=== PATIENT | male | born 1935 | race Caucasian/White ===

== ENCOUNTER 2019-12-10 03:49 | Observation (INO) | payer OTHER, MEDICARE, BC ==
[~2019-12-10] VITALS: Ht 175.3 cm; Wt 98.5 kg
[~2019-12-10 03:49] MED LIST: ACET325; ACET325 PO; ACYC5TO15G TOP; ALUMAG30SU PO; ASCO500 PO; ASPI325 PO; ASPI81EC PO; BISA10S PR; CALCIUM 600 +1 EA11; CEPH500 PO; CLOP75 PO; DOC250 PO; Fleet Enema132 ML PR; HCTZ/LISINOPRIL PO; LEVO750 PO; LEVSOD75 PO; LISHYD2025 PO; LISI5 PO; METO50 PO; Mag-Al Liquid30 ML PO; NYST100P TOP; OMEP20ER PO; SENN187 PO; SIMV40 PO; TERA5 PO; VITAMIN D31000 UNI1 PO
[2019-12-10 04:19] LABS: BASOPHILS ABSOLUTE AUTO 0.05 K/mm3 (0.00-0.23); BASOPHILS PERCENT AUTO 0 % (0-2); EOSINOPHILS ABSOLUTE AUTO 0.02 K/mm3 (0.00-0.68); EOSINOPHILS PERCENT AUTO 0 % (0-6); Hematocrit 45.8 % (37.0-53.0); Hemoglobin 15.4 g/dL (13.5-17.5); IMMATURE GRAN ABSOLUTE AUTO 0.07 K/mm3 (0.00-0.10); IMMATURE GRAN PERCENT AUTO 0 % (0-1); LYMPHOCYTES ABSOLUTE AUTO 1.39 K/mm3 (0.84-5.20); LYMPHOCYTES PERCENT AUTO 7 % (21-46); MONOCYTES PERCENT AUTO 5 % (4-13); Mean Corpuscular HGB 30.2 pg (26.0-34.0); Mean Corpuscular HGB Conc 33.6 g/dL (31.5-36.5); Mean Corpuscular Volume 90 fL (80-100); Mean Platelet Volume 10.7 fL (9.1-12.4); NEUTROPHILS ABSOLUTE AUTO 16.65 K/mm3 (1.96-9.15); NEUTROPHILS PERCENT AUTO 87 % (41-73); Platelet Count 211 K/mm3 (150-400); RDW Coefficient Variation 13.2 % (11.7-14.2); RDW Standard Deviation 43.6 fL (35.1-46.3); White Blood Cell Count 19.08 K/mm3 (4.00-11.30)
[2019-12-10 04:41] LABS: Albumin, Blood 3.4 g/dL (3.4-5.0); Albumin/Globulin Ratio 0.9 (0.8-1.8); Bilirubin, Total 0.5 mg/dL (0.1-1.0); Calcium, Blood 8.7 mg/dL (8.5-10.1); Creatinine, Blood 1.36 mg/dL (0.60-1.20); Globulin, Blood 3.7 g/dL (2.2-4.0); Potassium, Blood 3.6 mmol/L (3.5-5.5); Total Protein, Blood 7.1 g/dL (6.4-8.2)
[2019-12-10 05:38] LABS: Source, Urine Catheter
[2019-12-10 05:55] LABS: Bilirubin, Urine Neg (Neg); Blood, Urine 5+ (Neg); Glucose Qualitative, Urine Neg (Neg); Ketones, Urine Neg (Neg); Leukocyte Esterase, Urine 3+ (Neg); Nitrite, Urine Pos (Neg); Protein, Urine 3+ (Neg); Urobilinogen, Urine NORM (Normal)
[2019-12-10 06:08] LABS: Appearance, Urine Cloudy (Clear); Color, Urine Yellow (P-Yellow); Red Blood Cells, Urine TNTC /hpf (0-2); White Blood Cells, Urine TNTC /hpf (0-5)
[2019-12-10 06:09] LABS: Bacteria Many /hpf; Squamous Epithelial Cells Not Seen /hpf (Few)
--- NOTE | 2019-12-10 11:45 | NUR ---
PT JERKED RIGHT HAND UPWARD WHILE GETTING ONTO THE COMODE. HIS HAND HIT THE UNDERSIDE OF THE TOWEL RACK, RESULTING IN A SKIN TEAR ON THE BACK OF THE HAND APPROXIMATELY 2CM X 2CM. 2X2 GAUZE APPLIED WITH COBAN.
[2019-12-10] MEDS ORDERED: CEPH500 PO (14:27)
[2019-12-10] MEDS ORDERED: TAMS.4ER PO (14:27)
--- NOTE | 2019-12-10 16:19 | NUR ---
PT DISCHARGED HOME WITH HOME HEALTH. PT DISCHARGED WITH [facility] THAT HE ARRIVED WITH THIS AM. PT DENIES PAIN OR DISCOMFORT IN ABDOMEN AFTER [facility] ADJUSTMENT IN THE ER. PT TRANSPORTED HOME WITH HIS SPOUSE. PT TO VEHICLE IN WHEELCHAIR. PT 2 PERSON TRANSFER FROM WHEELCHAIR TO VEHICLE. PT'S SPOUSE STATED THAT SHE WAS GOING TO CALL [facility] TO HELP TRANSFER PT TO WHEELCHAIR AT HOME THEN INTO THE HOUSE. IV REMOVED PRIOR TO DISCHARGE. PRESCRIPT[facility]ED TO [facility]. DISCHARGE EDUCATION PROVIDED TO PT AND SPOUSE, NO FURTHER QUESTIONS AT THIS TIME.
== END 2019-12-10 14:55 | disposition home or self-care (01) ==
LOC: ER 03:49 → ERHOLD 03:50 → MEDS 03:50 → ENPENDDIS 12:00 → MEDS 14:55
PROVIDERS: Emergency Medicine; ADMIT Family Medicine
DX: T83.011A Breakdown (mechanical) of indwelling urethral catheter, initial encounter (principal); T83.511A Infection and inflammatory reaction due to indwelling urethral catheter, initial encounter; Y83.1 Surgical operation with implant of artificial internal device as the cause of abnormal reaction of the patient, or of later complication, without mention of misadventure at the time of the procedure; N40.1 Benign prostatic hyperplasia with lower urinary tract symptoms; N13.8 Other obstructive and reflux uropathy; E03.9 Hypothyroidism, unspecified; I12.9 Hypertensive chronic kidney disease with stage 1 through stage 4 chronic kidney disease, or unspecified chronic kidney disease; N18.3 Chronic kidney disease, stage 3 (moderate); Z86.73 Personal history of transient ischemic attack (TIA), and cerebral infarction without residual deficits; Z79.899 Other long term (current) drug therapy; Z88.2 Allergy status to sulfonamides; Z79.82 Long term (current) use of aspirin; Z87.891 Personal history of nicotine dependence; Z66 Do not resuscitate
CPT/HCPCS: 74177; 80053; 81001; 83690; 85025; 87086; 96361; 96365-59; 96366; 99285-25; G0378; J0696; J7030; J7050; Q9967

== ENCOUNTER 2022-09-01 11:44 | Emergency (ER) | payer OTHER ==
[~2022-09-01] VITALS: Ht 180.3 cm; Wt 113.4 kg
[~2022-09-01 11:44] MED LIST changes: +TAMS.4ER PO
[2022-09-01 12:20] LABS: BASOPHILS ABSOLUTE AUTO 0.05 K/mm3 (0.00-0.23); BASOPHILS PERCENT AUTO 0 % (0-2); EOSINOPHILS ABSOLUTE AUTO 0.06 K/mm3 (0.00-0.68); EOSINOPHILS PERCENT AUTO 1 % (0-6); Hematocrit 45.5 % (37.0-53.0); Hemoglobin 14.8 g/dL (13.5-17.5); IMMATURE GRAN ABSOLUTE AUTO 0.05 K/mm3 (0.00-0.10); IMMATURE GRAN PERCENT AUTO 0 % (0-1); LYMPHOCYTES ABSOLUTE AUTO 1.76 K/mm3 (0.84-5.20); LYMPHOCYTES PERCENT AUTO 15 % (21-46); MONOCYTES ABSOLUTE AUTO 0.66 K/mm3 (0.16-1.47); MONOCYTES PERCENT AUTO 6 % (4-13); Mean Corpuscular HGB 28.7 pg (26.0-34.0); Mean Corpuscular HGB Conc 32.5 g/dL (31.5-36.5); Mean Corpuscular Volume 88 fL (80-100); Mean Platelet Volume 10.5 fL (9.1-12.4); NEUTROPHILS ABSOLUTE AUTO 9.02 K/mm3 (1.96-9.15); NEUTROPHILS PERCENT AUTO 78 % (41-73); Platelet Count 258 K/mm3 (150-400); RDW Coefficient Variation 14.9 % (11.7-14.2); RDW Standard Deviation 48.1 fL (35.1-46.3); Red Blood Cell Count 5.16 M/mm3 (4.30-5.90)
[2022-09-01 12:47] LABS: Albumin, Blood 3.7 g/dL (3.4-5.0); Albumin/Globulin Ratio 0.9 (0.8-1.8); Bilirubin, Total 0.6 mg/dL (0.1-1.0); Bun/Creatinine Ratio 19.4 (12.0-20.0); Creatinine, Blood 1.6 mg/dL (0.60-1.20); Globulin, Blood 3.9 g/dL (2.2-4.0); Total Protein, Blood 7.6 g/dL (6.4-8.2)
[2022-09-01 13:06] LABS: Influenza A, PCR NEGATIVE (NEGATIVE); Influenza B, PCR NEGATIVE (NEGATIVE); Resp Syncytial Virus, PCR NEGATIVE (NEGATIVE)
[2022-09-01 13:09] LABS: SARS-Cov-2 (COVID-19) PCR, MMC POSITIVE (NEGATIVE)
[2022-09-01 13:13] LABS: Source, Urine Foley catheter
[2022-09-01 13:17] LABS: Appearance, Urine Hazy (Clear); Bilirubin, Urine Neg (Neg); Blood, Urine 3+ (Neg); Color, Urine Yellow (P-Yellow); Glucose Qualitative, Urine Neg (Neg); Ketones, Urine Neg (Neg); Leukocyte Esterase, Urine 3+ (Neg); Nitrite, Urine Neg (Neg); Protein, Urine 3+ (Neg); Urobilinogen, Urine NORM (Normal)
[2022-09-01 13:28] LABS: Magnesium, Blood 1.6 mg/dL (1.6-2.4); Thyroid Stimulating Hormone 3.5 uIU/mL (0.360-4.800)
[2022-09-01 13:34] LABS: White Blood Cells, Urine TNTC /hpf (0-5)
[2022-09-01 13:35] LABS: Bacteria Many /hpf; Squamous Epithelial Cells Not Seen /hpf (Few); Transitional Epithelial Cells Rare /hpf (0-Rare)
[2022-09-01] MEDS ORDERED: CEFD300 PO (14:58)
== END 2022-09-01 16:20 | disposition home or self-care (01) ==
LOC: ER 11:44
PROVIDERS: Emergency Medicine
DX: U07.1 COVID-19 (principal); N39.0 Urinary tract infection, site not specified; I10 Essential (primary) hypertension; E03.9 Hypothyroidism, unspecified; Z86.73 Personal history of transient ischemic attack (TIA), and cerebral infarction without residual deficits; Z87.891 Personal history of nicotine dependence
CPT/HCPCS: 0241U; 36415; 51702; 80053; 81001; 83735; 84443; 85025; 93005; 93010; J0696; J7030